=== PATIENT | female | born 1985 | race Asian ===

== ENCOUNTER 2018-06-21 04:51 | Emergency (ER) | payer MEDICAID ==
[~2018-06-21] VITALS: Ht 149.9 cm; Wt 43.2 kg
[2018-06-21 04:57] VITALS: BP 115/70
[2018-06-21] MEDS ORDERED: OLAN10TA3 PO (05:02)
== END 2018-06-21 08:38 | disposition home or self-care (01) ==
LOC: EMS 04:53
DX: F20.9 Schizophrenia, unspecified (principal); J00 Acute nasopharyngitis [common cold]; F17.210 Nicotine dependence, cigarettes, uncomplicated; F15.90 Other stimulant use, unspecified, uncomplicated; Z79.899 Other long term (current) drug therapy